=== PATIENT | female | born 1985 | race Caucasian/White ===

== ENCOUNTER 2018-09-27 13:47 | Emergency (ER) | payer OTHER ==
[2018-09-27 14:53] VITALS: BMI 31.9
--- NOTE | 2018-09-27 15:12 | PDOC ---
History of Present Illness - General Chief Complaint: Chest Pain Stated Complaint: CHEST PAIN Time Seen by Provider: 09/27/18 15:02 - History of Present Illness Initial Comments: 09/27/18 19:54 Ms. June is a 33 y/o woman with hx anemia, palpitations, prior cardiac imaging including cardiac stress test 10 years ago presenting with one day of ongoing palpitations. She reports that she noted the palpitations yesterday afternoon after ingesting an energy drink with caffeine. She reports being on a keto diet where she eats one meal each day. She reports that she has palpitations chronically, and in 2017 was prescribed metoprolol for palpitations as needed, which she has not taken today as her palpitations normally resolve on their own. She denies any fevers, chills, chest pain, shortness of breath, fatigue, dizziness, vertigo, syncope, or near syncope. She reports having a history of "extra heart beat", but denies any history of afib or other arrhythmia. She reports that her father has a fib, and denies any family or personal history of structural heart disease. She has no known drug allergies. 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 Jag Stanley Past History - Past Medical History Allergies/Adverse Reactions: Allergies Allergy/AdvReac Type Severity Reaction Status Date / Time No Known Allergies Allergy Verified 09/27/18 14:48 - Suicide/Smoking/Psychosocial Hx Smoking History: Never smoked Review of Systems - Review of Systems Able to Perform ROS?: Yes Comments:: 09/27/18 16:31 ROS: GENERAL/CONSTITUTIONAL: No fever or chills. No weakness. HEAD, EYES, EARS, NOSE AND THROAT: No change in vision. No ear pain or discharge. No sore throat. CARDIOVASCULAR: Palpitations. No chest pain or shortness of breath RESPIRATORY: No cough, wheezing, or hemoptysis. GASTROINTESTINAL: No nausea, vomiting, diarrhea or constipation. GENITOURINARY: No dysuria, frequency, or change in urination. MUSCULOSKELETAL: No joint or muscle swelling or pain. No neck or back pain. SKIN: No rash NEUROLOGIC: No headache, vertigo, loss of consciousness, or change in strength/ sensation. ENDOCRINE: No increased thirst. No abnormal weight change HEMATOLOGIC/LYMPHATIC: No anemia, easy bleeding, or history of blood clots. ALLERGIC/IMMUNOLOGIC: No hives or skin allergy. *Physical Exam - Vital Signs Last Vital Signs Temp Pulse Resp BP Pulse Ox 98.7 F 55 L 16 104/67 99 09/27/18 13:50 09/27/18 13:50 09/27/18 13:50 09/27/18 13:50 09/27/18 13:50 - Physical Exam Comments: 09/27/18 16:32 PE: GENERAL: Awake, alert, and fully oriented, in no acute distress HEAD: No signs of trauma, normocephalic, atraumatic EYES: PERRLA, EOMI, sclera anicteric, conjunctiva clear ENT: Auricles normal inspection, hearing grossly normal, nares patent, oropharynx clear without exudates. Moist mucosa NECK: Normal ROM, supple, no lymphadenopathy, JVD, or masses LUNGS: No distress, speaks full sentences, clear to auscultation bilaterally HEART: Systolic 3+ murmur noted. Regular rate and rhythm, normal S1 and S2, peripheral pulses normal and equal bilaterally. ABDOMEN: Soft, nontender, normoactive bowel sounds. No guarding, no rebound. No masses EXTREMITIES : Normal inspection, Normal range of motion, no edema. No clubbing or cyanosis. NEUROLOGICAL: Normal speech, normal gait, no focal sensorimotor deficits SKIN: Warm, Dry, normal turgor, no rashes or lesions noted Respiratory/Chest: positive: Lungs Clear, Normal Breath Sounds. negative: Chest Tender, Respiratory Distress, Crackles, Rales, Stridor, Wheezing Cardiovascular: positive: Regular Rhythm, Regular Rate Heart Score/ECG Review - History History: Slightly suspicious - Electrocardiogram EKG: Normal - Age Age: </= 45 - Risk Factors Risk Factors Heart Score: Yes Hx Hypertension, Yes Positive family hx of cardiac disease, Yes Hx Obesity Based on the list above the patient has:: >/=3 risk factors or Hx atherosclerotic disease - ECG Intrepretation Rhythm: Regular Rhythm Comment:: 09/27/18 16:35 Sinus arrhythmia noted on ECG - [place]: Normal - ECG Impressions Normal ECG: Yes ED Treatment Course - LABORATORY CBC & Chemistry Diagram: 09/27/18 16:40 09/27/18 16:40 Medical Decision Making - Medical Decision Making 09/27/18 15:57 33 y/o woman with hx palpitations, family history of afib, p/w two days of ongoing palpitations after drinking an energy drink yesterday, with murmur noted on exam. Differential for her most likely for palpitations secondary to caffeine intake, but cannot rule out ACS or electrolyte abnormalities at this time. Structural heart disease possible but less likely given extensive prior cardiac imaging and workup. Plan: CBC CMP EKG Beta-hcg CXR PT/INR TSH Given lower HR 55 deferring beta gama for palpitations at this time. Dispo: Pending labs, imaging --- Labs reassuring. CBC, CMP, troponin within normal limits. EKG, CXR without acute pathology. If UA results normal plan for discharge home with PCP/ cardiology follow up for palpitations. --- UA, Urine tox returned normal. Counseled patient with return precautions, discharged without incident. *DC/Admit/Observation/Transfer Diagnosis at time of Disposition: Palpitations - Discharge Dispostion Disposition: HOME Condition at time of disposition: Stable Decision to Admit order: No - Referrals Referrals: Archana Calle MD [Primary Care Provider] - - Patient Instructions Printed Discharge Instructions: DI for Palpitations Additional Instructions: You were evaluated in the Emergency Department for palpitations. We evaluated your blood electrolyte levels, the electrical rhythm of your heart, and and checked your troponin - a protein released when your heart is under stress. Everything returned within normal limits. We believe you are safe to discharge home at this time. Please follow up with your pocket builder and your primary care physician to follow up on the palpitations. Please return to the Emergency Department if you develop chest pain, shortness of breath, or feel as if you are going to pass out. - Post Discharge Activity
--- NOTE | 2018-09-27 15:18 | EKG ---
Test Reason : Blood Pressure : / mmHG Vent. Rate : 073 BPM Atrial Rate : 073 BPM P-R Int : 120 ms QRS Dur : 084 ms QT Int : 416 ms P-R-T Axes : 036 025 033 degrees QTc Int : 458 ms SINUS RHYTHM WITH MARKED SINUS ARRHYTHMIA OTHERWISE NORMAL ECG WHEN COMPARED WITH ECG OF 27-AUG-2009 11:12, NO SIGNIFICANT CHANGE WAS FOUND Confirmed by MD Morales Daniel ([id number]) on 09/27/2018 3:18:21 PM Referred By: Confirmed By:Marquise Morales MD
--- NOTE | 2018-09-27 16:41 | PDOC ---
Attending Attestation - Resident Resident Name: Bam Toribio - ED Attending Attestation I have performed the following: I have examined & evaluated the patient, The case was reviewed & discussed with the resident, I agree w/resident's findings & plan - HPI HPI: 09/27/18 16:41 33y/o healthy F with h/o palpitations (workup 10y ago with holter/stress/echo with dr. fidel johnson, since then followed by Dr. Corbin of [facility]) presents today with intermittent palpitations since yesterday. Patient has been on Keto diet, eating 1 meal a day, yesterday around noon took a diet drink and subsequently felt a fleeting heart palpitation 1 beat every 10 minutes, no other associated symptoms. She awoke this morning, took a Tylenol Cold and flu for feeling of sinus congestion that was starting, and continued to feel the palpitations so she presented for evaluation assuming the palpitations were persistent despite stopping the diet drink. No shortness of breath, no exertional complaints, denies any drugs or alcohol. Did travel recently to [place] but denies any leg swelling or cramping, no personal or family history of DVT or PE. Prescribed metoprolol in the past for palpitations but did not take them because they last year. - Physicial Exam PE: 09/27/18 16:44 Vital signs normal Well-appearing, ambulating in the emergency Department Heart is regular with sinus arrhythmia, no premature beats auscultated during exam, no audible murmur Lungs are clear Abdomen benign Thyroid normal No calf tenderness or edema Neurovascular intact distally - Medical Decision Making 09/27/18 16:45 33-year-old female with history of palpitations and arrhythmia presents now with likely symptomatic ectopy in the setting of diet supplements and cold remedies. No persistent tachycardia or arrhythmia, hemodynamically stable here and asymptomatic. No chest pain to suggest ACS, not clinically consistent with PE. 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 Heart Score/ECG Review #1 ECG reviewed & interpreted by me at: 13:51 General ECG Interpretation: Sinus Rhythm (sinus arrhythmia), Normal Rate (73), Normal Intervals (qtc 458), No acute ischemic changes
[2018-09-27 17:08] LABS: PH,URINE 5.5 (5.0-8.0); URINE APPEARANCE CLOUDY; URINE BILIRUBIN NEGATIVE (NEGATIVE); URINE COLOR YELLOW; URINE GLUCOSE (UA) NEGATIVE (NEGATIVE); URINE KETONE TRACE (NEGATIVE); URINE LEUK ESTERASE NEGATIVE (NEGATIVE); URINE NITRITE NEGATIVE (NEGATIVE); URINE PROTEIN NEGATIVE (NEGATIVE)
[2018-09-27 17:08] LABS: BASO % 0.4 % (0-2.0); EOS % 0.8 % (0-4.5); HEMATOCRIT 35.9 % (32.4-45.2); HEMOGLOBIN 11.6 GM/dL (10.7-15.3); LYMPH % 28.5 % (8-40); MCH 26.5 pg (25.7-33.7); MCHC 32.5 g/dl (32.0-36.0); MEAN CELL VOLUME 81.7 fl (80-96); MEAN PLT VOLUME 8.2 fl (7.5-11.1); MONO % 4.9 % (3.8-10.2); NEUT % 65.4 % (42.8-82.8); PLATELET COUNT 393 K/MM3 (134-434); RBC 4.39 M/mm3 (3.60-5.2); RDW 16.8 % (11.6-15.6); WHITE BLOOD COUNT 10.8 K/mm3 (4.0-10.0)
[2018-09-27 17:19] LABS: COCAINE, UR NEGATIVE ng/ml (CUTOFF=300); METHADONE, UR NEGATIVE ng/ml (CUTOFF=300); OPIATES, URI NEGATIVE ng/ml (CUTOFF=300); PHENCYCLIDINE,URINE NEGATIVE ng/ml (CUTOFF=25); URINE AMPHETAMINES NEGATIVE ng/ml (CUTOFF=500); URINE BARBITURATES NEGATIVE ng/ml (CUTOFF=200); URINE BENZODIAZEPINES NEGATIVE ng/ml (CUTOFF=200)
[2018-09-27 17:20] LABS: BLOOD UREA NITROGEN 13.4 mg/dL (7-18); CREATININE 0.7 mg/dL (0.55-1.3); POTASSIUM 4.2 mmol/L (3.5-5.1)
[2018-09-27 17:21] LABS: BILIRUBIN,TOTAL 0.2 mg/dL (0.2-1); CALCIUM 8.8 mg/dL (8.5-10.1); TOT PROT 7.4 g/dl (6.4-8.2)
[2018-09-27 17:23] LABS: INR 1.06 (0.83-1.09); PROTHROMBIN TIME (PATIENT) 12.5 SEC (9.7-13.0)
[2018-09-27 18:32] VITALS: BP 110/64; PULSE 70; TEMP 98.1
== END 2018-09-27 18:30 | disposition home or self-care (01) ==
LOC: JER 13:47
DX: R00.2 Palpitations (principal)
CPT/HCPCS: 36415; 71046-TC-FY; 80053; 80307; 81003; 82550; 84443; 84484; 84703; 85025; 85610; 93005; 93010; 99283-25